=== PATIENT | male | born 1950 | race Caucasian/White ===

== ENCOUNTER → 2024-08-27 16:30 | Outpatient (REF) | payer MEDICARE, OTHER, SELFPAY ==
[2024-08-27 17:16] LABS: % Basophils 0.1 % (0-2); % Eosinophils 4.1 % (0-6); % Immature Granulocytes 0.4 % (0-0.5); % Lymphocytes 20.9 % (20.5-51.1); % Monocytes 8.3 % (1.7-9.3); % Neutrophils 66.2 % (42.2-75.2); Absolute Eosinophils 0.3 10^3/uL (0-0.7); Absolute Lymphocytes 1.6 10^3/uL (1.2-3.4); Absolute Monocytes 0.6 10^3/uL (0.1-0.6); Absolute Neutrophils 4.9 10^3/uL (1.4-6.5); Hematocrit 39.5 % (39.0-52.0); Hemoglobin 13.6 g/dL (13.0-18.0); Mean Corp Hgb Conc. 34.4 g/dL (33.0-37.0); Mean Corpuscular Hgb 32.9 pg (27.0-31.0); Mean Corpuscular Volume 95.6 fL (80.0-94.0); Mean Platelet Volume 9.8 fL (7.4-10.4); Nucleated Red Blood Cells % 0 % (-); Platelet Count 215 10^3/uL (130-400); Red Blood Cell Count 4.13 10^6/uL (4.70-6.10); Red Cell Dist. Width 13.2 % (11.5-14.5); White Blood Cell Count 7.5 10^3/uL (4.8-10.8)
[2024-08-27 17:18] LABS: Urine Albumin Negative (Neg - Trace); Urine Bilirubin Negative (Negative); Urine Character Clear (Clear); Urine Color Yellow; Urine Glucose Negative (Negative); Urine Ketone Negative (Negative); Urine Leukocyte 2+ (Negative); Urine Nitrite Negative (Negative); Urine Occult Blood Negative (Negative); Urine Specific Gravity 1.015 (<1.030); Urine Urobilinogen Negative (Neg - 1+)
[2024-08-27 17:28] LABS: ALT (SGPT) 13 U/L (0-50); AST (SGOT) 27 U/L (17-59); Albumin 4.1 g/dl (3.5-5.0); Alkaline Phosphatase 36 U/L (38-126); Blood Urea Nitrogen 27 mg/dl (9-20); Calcium 9.5 mg/dl (8.4-10.2); Carbon Dioxide 29 mmol/L (22-30); Chloride 106 mmol/L (98-107); Glucose 96 mg/dl (70-99); HDL Cholesterol 68 mg/dl; LDL Cholesterol, Calculated 44 mg/dl; Potassium 4.1 mmol/L (3.5-5.1); Sodium 143 mmol/L (135-145); Total Cholesterol 127 mg/dl (50-199); Triglyceride 76 mg/dl (10-149); Very Low Density Lipoprotein 15 mg/dl (0-30); eGFR > 60.00
[2024-08-27 17:44] LABS: Urine Bacteria Few (Negative); Urine Red Blood Cell 0-2 /HPF (0-2); Urine Squamous Cell 0-2 /LPF (Few)
[2024-08-27 18:01] LABS: PSA, Total - Screen 7.62 ng/ml (0.0-4.0); TSH Reflex To Free T4 1.18 uIU/ml (0.47-4.68)
== END ==
LOC: REG 16:30
PROVIDERS: ATTENDING PHYSICIAN Internal Medicine
DX: B19.20 Unspecified viral hepatitis C without hepatic coma (principal); K40.90 Unilateral inguinal hernia, without obstruction or gangrene, not specified as recurrent; Z80.42 Family history of malignant neoplasm of prostate; E78.5 Hyperlipidemia, unspecified; Z12.5 Encounter for screening for malignant neoplasm of prostate
CPT/HCPCS: 36415; 80053; 80061; 81003; 81015; 84443; 85025; G0103

== ENCOUNTER → 2024-08-30 12:02 | Outpatient (REF) | payer MEDICARE, OTHER, SELFPAY ==
[2024-08-30 17:28] LABS: Urine Albumin Negative (Neg - Trace); Urine Bilirubin Negative (Negative); Urine Character Clear (Clear); Urine Color Yellow; Urine Glucose Negative (Negative); Urine Ketone Negative (Negative); Urine Leukocyte Negative (Negative); Urine Nitrite Negative (Negative); Urine Occult Blood Negative (Negative); Urine Urobilinogen Negative (Neg - 1+)
== END ==
LOC: CLAB 12:02
PROVIDERS: ATTENDING PHYSICIAN Internal Medicine
DX: R82.81 Pyuria (principal)
CPT/HCPCS: 81003; 87086

== ENCOUNTER 2025-03-03 05:54 | Day surgery (SDC) | payer MEDICARE, OTHER, SELFPAY ==
[2025-02-19 14:01] VITALS: BMI 21.7
[2025-03-03] VITALS (7 sets, daily range): BP systolic 108–140; BP diastolic 64–75; BMI 21.7
[2025-03-03] MEDS: HEPARIN 5000 UNITS SC (06:34)
[2025-03-03] MEDS: TYLENOL 1000 MG PO (06:34)
[2025-03-03] MEDS: NORMOSOL-R/PLASMALYTE-A 1000 IV (06:38)
--- NOTE | 2025-03-03 08:23 | W.IMMPOSTOP ---
Surgical Immed Post Op Note
-
Primary Surgeon: Colin
Assisting: Claudia AGUIRRE
Pre-op Diagnosis: Right inguinal hernia
Post-op Diagnosis: Same
Procedure Performed: Robot assisted laparoscopic repair right inguinal hernia
Anesthesia Type: GETA
Specimen / Cultures: None
Estimated Blood Loss: 10cc
Complications: None immediate
Operative Findings: Indirect defect, deep sac totally reduced; no cord lipoma, XL MID 3D Max
--- NOTE | 2025-03-03 08:27 | OR.RPT ---
Addendum entered and electronically signed by Klever Shaw MD 03/03/25 10:16:
Correction: disregard this sentence in the report below, entered in error.
'There was extensive scarring in this area that was lysed slowly and carefully.'
Original Note:
Operative Report
Operative Report
Primary Surgeon: Colin
Assisting: Claudia AGUIRRE
Pre-op Diagnosis: Right inguinal hernia
Post-op Diagnosis: Same
Procedure Performed: Robot assisted laparoscopic repair right inguinal hernia
Anesthesia Type: GETA
Specimen / Cultures: None
Estimated Blood Loss: 10cc
Complications: None immediate
Operative Findings: Indirect defect, deep sac totally reduced; no cord lipoma, XL MID 3D Max
Date of Surgery: 03/03/25
Indications: This 74M developed a symptomatic right inguinal hernia. Robot assisted laparoscopic repair was elected.
Description of procedure:� The patient was taken to the operating room and positioned into supine position. The patient�s abdomen was prepped and draped in standard sterile fashion. A time-out was completed verifying correct patient, procedure,
site, positioning, and implants and special equipment prior to beginning this procedure.
A stab incision was made in the left upper quadrant, a Veress needle was inserted and proper position was confirmed by aspiration and saline drop test. Following this, pneumoperitoneum was created with insufflation of carbon dioxide to 12 mmHg. Then
a 8mm robotic trocar was inserted above and to the left of the umbilicus. A laparoscope was inserted and the area of initial trocar entry and Veress needle placement were both inspected and no injuries were found. Two 8mm trocars were then placed
lateral to the rectus sheath under direct visualization.
Both inguinal regions were inspected and the median umbilical ligament, medial umbilical ligament, and lateral umbilical fold were identified. Attention was turned to the right groin. The peritoneum was incised transversely above the defect and a
flap was developed in the caudad direction. Nilesh�s ligament was identified ultimately dissected to its junction with the iliac vein and the space of Retzius was developed bluntly. There was extensive scarring in this area that was lysed slowly and
carefully. The dissection was continued inferiorly to the iliopubic tract, with care taken to avoid injury to the femoral branch of the genitofemoral nerve and the lateral femoral cutaneous nerve. The cord structures were parietalized.
The direct space was inspected and no hernia defect was identified. The femoral space was inspected and no defect was identified. The indirect space was inspected and a defect was identified and reduced, the sac was deep and totally reduced. The
canal was inspected and no cord lipoma was identified.
Extra large right MID 3D max mesh was passed through a trocar. The mesh was placed into the preperitoneal space and moved into position to lay flat and completely cover the direct, indirect, and femoral spaces with overlap at the midline. The mesh
was secured into place using 2-0 vicryl suture to Nilesh�s ligament medially and laterally. Care was taken to avoid the inferolateral triangles containing the iliac vessels and genital nerves. The peritoneal flap was closed over the mesh and secured
with 2-0 monocryl stratafix suture in similar positions of safety. A 14g angiocath was used to decompress the preperitoneal space revealing good seal and all mesh in good position without folding or curling.
After ensuring adequate hemostasis, the trocars were removed and the pneumoperitoneum allowed to escape. The trocar incisions were closed at the skin level using 4-0 monocryl and topical skin adhesive. Marcaine 0.5% with epinephrine was infiltrated
into the skin around the port incisions. All counts were correct and the patient tolerated the procedure well and was taken to the postanesthesia care unit in stable condition.
The assistance of Claudia AGUIRRE was required due to the complexity of the procedure. During the procedure she assisted with retraction, resection, and closure of the wound.
[2025-03-03] MEDS: DILAUDID 0.25 MG IV (08:38)
== END 2025-03-03 10:35 | disposition home or self-care (01) ==
LOC: SDS 05:54
PROVIDERS: ATTENDING PHYSICIAN Surgery; FAMILY PHYSICIAN Internal Medicine
DX: K40.90 Unilateral inguinal hernia, without obstruction or gangrene, not specified as recurrent (principal)
CPT/HCPCS: 49650; 36415; 93005; C1781